=== PATIENT | female | born 1990 | race Caucasian/White ===

== ENCOUNTER 2016-09-29 19:32 | Emergency (ER) | payer BC ==
--- NOTE | 2016-09-29 19:42 | PDOC ---
History of Present Illness - General History Source: Patient Exam Limitations: No Limitations - History of Present Illness Initial Comments: 09/29/16 19:58 The patient is a 26 year old female, with no significant past medical history, who presents to the emergency department with right ankle pain and swelling s/p a mechanical trip and fall up the stairs approximately an hour prior to presentation to the ED. The patient states that she was running up the stairs, missed a step and twisted her right ankle. The patient immediately applied ice to the area and came to the ED for evaluation. The patient denies any other injury or trauma. PAST MEDICAL HISTORY: See HPI. PAST SURGICAL HISTORY: No significant history. FAMILY HISTORY: No pertinent history. SOCIAL HISTORY: Patient lives with family and is employed. MEDICATIONS: Reviewed. ALLERGIES: As per nursing notes. Adult ROS: General: No fevers or chills, no weakness, no weight loss. HEENT: No change in vision. No sore throat. No ear pain. CardioVascular: No chest pain or shortness of breath. Respiratory: No cough, or wheezing. Gastrointestinal: No nausea, vomiting, diarrhea or constipation, no rectal bleeding. Genitourinary: No dysuria, hematuria, or frequency. Musculoskeletal: +Right ankle pain and swelling. No muscle pain or swelling. Neurologic: No headache, vertigo, dizziness or loss of consciousness. Psychiatric: No depression. Skin: No rashes or easy bruising. Endocrine: No increased thirst or abnormal weight change. Allergic: No skin or latex allergy. All other systems reviewed and normal. Basic Physical Exam: GENERAL: The patient is awake, alert, and fully oriented, in no acute distress. HEAD: Normal with no signs of trauma. EYES: Pupils equal, round and reactive to light, extraocular movements intact, sclera anicteric, conjunctiva clear. EXTREMITIES: Right ankle, marked swelling over the lateral malleolus with tenderness to palpation. Mild tenderness over the 5th metatarsal but no swelling or ecchymoses over this area. Neurovascularly intact. NEUROLOGICAL: Normal speech. PSYCH: Normal mood, normal affect. SKIN: Warm, dry, normal turgor, no rashes or lesions noted. <Lori Kim - Last Filed: 09/29/16 20:04> - General History Source: Patient Exam Limitations: No Limitations - History of Present Illness Initial Comments: 09/29/16 20:27 A portion of this note was documented by scribe services under my direction. I have reviewed the details of the note, within reason, and agree with the documentation. The case summary and management plan written by me. X-ray right ankle and foot no acute pathology, no acute fracture or dislocation as reviewed by me Assessment and plan: This is a 26 her old female who twisted her right ankle while going up stairs when she missed a step. Patient complaining of pain and swelling over the lateral aspect of her right ankle. Patient had an x-ray that was negative for any acute pathology. Patient's ankle Sanjeev wrap and she was given Patient will follow-up with an orthopedist as needed patient given an orthopedic referral <Osmany Green I - Last Filed: 09/29/16 20:41> - General Chief Complaint: Pain, Acute Stated Complaint: TRIPPED UP STAIRS, RIGHT ANKLE INJURY Time Seen by Provider: 09/29/16 19:38 Past History <Lori Kim - Last Filed: 09/29/16 20:04> <Osmany Green I - Last Filed: 09/29/16 20:41> - Past Medical History Allergies/Adverse Reactions: Allergies Allergy/AdvReac Type Severity Reaction Status Date / Time No Known Allergies Allergy Verified 09/29/16 19:48 Home Medications: Ambulatory Orders NK [No Known Home Medication] 09/29/16 *Physical Exam - Vital Signs Last Vital Signs Temp Pulse Resp BP Pulse Ox 98.5 F 110 H 16 149/90 98 09/29/16 19:50 09/29/16 19:50 09/29/16 19:50 09/29/16 19:50 09/29/16 19:50 <Lori Kim - Last Filed: 09/29/16 20:04> ED Treatment Course - ADDITIONAL ORDERS Additional order review: Laboratory Results 09/29/16 19:45 Urine HCG, Qual Negative <Lori Kim - Last Filed: 09/29/16 20:04> *DC/Admit/Observation/Transfer - Attestations Scribe Attestion: 09/29/16 19:57 Documentation prepared by Lori Kim, acting as medical transcription supervisor for Osmany Green MD. <RosankyLori Hester - Last Filed: 09/29/16 20:04> - Discharge Dispostion Admit: No <Osmany Green I - Last Filed: 09/29/16 20:41> Diagnosis at time of Disposition: Moderate right ankle sprain Qualifiers: Encounter type: initial encounter Qualified Code(s): S93.401A - Sprain of unspecified ligament of right ankle, initial encounter - Discharge Dispostion Disposition: HOME Condition at time of disposition: Stable - Patient Instructions Printed Discharge Instructions: DI for Ankle Sprain Additional Instructions: Your x-ray was read by me and will be reread by the radiologist this evening. If the radiologist reading is anything different from mine we will contact you. Tylenol or Motrin as needed for pain. Use your crutches for walking however you can also bear weight as tolerated. If he needed an orthopedist to follow-up with follow-up with Dr. Rubin at [phone]. Return to the emergency department immediately with ANY new, persistent or worsening symptoms. Continue any medications as previously prescribed by your physician. You should follow up with your primary doctor as soon as possible regarding today's emergency department visit. . Please make sure your doctor reviews the results of your emergency evaluation. Thank you for coming to the Emergency Department today for your care. It was a pleasure to see you today. Please note that your evaluation is INCOMPLETE until you follow-up with your doctor.
[2016-09-29] MEDS ORDERED: KETOROLAC TROMETHAMINE 60 MG/2 ML VIAL IM ONE (19:45)
[2016-09-29 20:05] VITALS: BP 149/90; PULSE 110; TEMP 98.5; BMI 29.0
== END 2016-09-29 20:57 | disposition home or self-care (01) ==
LOC: FER 19:32
PROC: 3E0233Z Introduction of Anti-inflammatory into Muscle, Percutaneous Approach (ICD-10-PCS; principal; 2016-09-29)
DX: S93.401A Sprain of unspecified ligament of right ankle, initial encounter (principal); X58.XXXA Exposure to other specified factors, initial encounter; Y93.02 Activity, running; Y92.9 Unspecified place or not applicable
CPT/HCPCS: 73610-TC-RT; 73630-TC-RT; 84703; 99281-25

== ENCOUNTER 2018-09-14 09:00 | Emergency (ER) | payer BC ==
[2018-09-14 09:05] VITALS: TEMP 98.6; BMI 29.7
[2018-09-14] MEDS ORDERED: SODIUM CHLORIDE 1,000 ML IV STA (09:13)
[2018-09-14] MEDS ORDERED: DEXAMETHASONE SOD PHOSPHATE 20 MG/5 ML VIAL IVPB ONE (09:13)
[2018-09-14] MEDS ORDERED: PENICILLIN G BENZATHINE 1,200,000 UNIT/2 ML PFS IM ONE ×2 (09:17→09:37)
[2018-09-14] MEDS ORDERED: DEXAMETHASONE SOD PHOSPHATE 10 MG/1 ML VIAL ONE (09:25)
--- NOTE | 2018-09-14 09:26 | PDOC ---
History of Present Illness - General Chief Complaint: Cold Symptoms Stated Complaint: fever,sore throat,flu like symptoms Time Seen by Provider: 09/14/18 09:11 History Source: Patient Exam Limitations: No Limitations - History of Present Illness Initial Comments: 09/14/18 09:18 28 year old female with past medical history of celiac's disease presents with sore throat and fever x several days. + sick contact with her daughter. Has had hx of tonsillectomy and multiple strep infections when younger. No chest pain, SOB, cough. Went to urgent care recently, had negative strep and influenza, and pt was sent home. However, pt reports that this feels exactly like her prior strep infections. Past History - Past Medical History Allergies/Adverse Reactions: Allergies Allergy/AdvReac Type Severity Reaction Status Date / Time No Known Allergies Allergy Verified 09/14/18 09:02 Home Medications: Ambulatory Orders NK [No Known Home Medication] 09/29/16 COPD: No GI Disorders: (delia) - Suicide/Smoking/Psychosocial Hx Smoking History: Never smoked Have you smoked in the past 12 months: No Hx Alcohol Use: No Drug/Substance Use Hx: No Substance Use Type: None Review of Systems - Review of Systems Able to Perform ROS?: Yes Comments:: 09/14/18 09:26 GENERAL/CONSTITUTIONAL: [No chills. No weakness. No weight change.] + fevers HEAD, EYES, EARS, NOSE AND THROAT: [No change in vision. No ear pain or discharge. + sore throat CARDIOVASCULAR: [No chest pain or shortness of breath.] RESPIRATORY: [No cough, wheezing, or hemoptysis.] GASTROINTESTINAL: [No nausea, vomiting, diarrhea or constipation. No rectal bleeding.] GENITOURINARY: [No dysuria, frequency, or change in urination.] MUSCULOSKELETAL: [No joint or muscle swelling or pain. No neck or back pain.] SKIN AND BREASTS: [No rash or easy bruising.] NEUROLOGIC: [No headache, vertigo, loss of consciousness, or loss of sensation.] PSYCHIATRIC: [No depression or anxiety.] ENDOCRINE: [No increased thirst. No abnormal weight change.] HEMATOLOGIC/LYMPHATIC: [No anemia, easy bleeding, or history of blood clots.] ALLERGIC/IMMUNOLOGIC: [No hives or skin allergy. No latex allergy.] *Physical Exam - Vital Signs Last Vital Signs Temp Pulse Resp BP Pulse Ox 98.6 F 99 H 18 120/84 100 09/14/18 09:03 09/14/18 09:03 09/14/18 09:03 09/14/18 09:03 09/14/18 09:03 - Physical Exam Comments: 09/14/18 09:32 GENERAL: Awake, alert, and fully oriented, in no acute distress HEAD: No signs of trauma EYES:EOMI, sclera anicteric, conjunctiva clear ENT: Auricles normal inspection, hearing grossly normal, nares patent, oropharynx posterior with erythema NECK: Normal ROM, supple, + anterior cervical lymphadenopathy LUNGS: Breath sounds equal, clear to auscultation bilaterally. No wheezes, and no crackles HEART: Regular rate and rhythm, normal S1 and S2, no murmurs, rubs or gallops EXTREMITIES: Normal range of motion, no edema. No clubbing or cyanosis. No cords, erythema, or tenderness NEUROLOGICAL: Cranial nerves II through XII grossly intact. Normal speech, normal gait SKIN: Warm, Dry, normal turgor, no rashes or lesions noted. Moderate Sedation - Procedure Monitoring Vital Signs: Procedure Monitoring Vital Signs Temperature 98.6 F 09/14/18 09:03 Pulse Rate 99 H 09/14/18 09:03 Respiratory Rate 18 09/14/18 09:03 Blood Pressure 120/84 09/14/18 09:03 O2 Sat by Pulse Oximetry (%) 100 09/14/18 09:03 ED Treatment Course - LABORATORY CBC & Chemistry Diagram: 09/14/18 09:20 09/14/18 09:20 Medical Decision Making - Medical Decision Making 09/14/18 09:33 Vital Signs Temp Pulse Resp BP Pulse Ox 98.6 F 99 H 18 120/84 100 09/14/18 09:03 09/14/18 09:03 09/14/18 09:03 09/14/18 09:03 09/14/18 09:03 Obtain rapid strep and throat culture Given multiple hx of strep infections and similar presentation, will give empiric IM pencillin G Labs, IVF. once workup returns, and pt feels better, can be discharged as pharyngitis 09/14/18 10:23 CBC, BMP 09/14/18 09:20 09/14/18 09:20 CMP Sodium 133 mmol/L (136-145) L 09/14/18 09:20 Potassium 3.6 mmol/L (3.5-5.1) 09/14/18 09:20 Chloride 102 mmol/L (98-107) 09/14/18 09:20 Carbon Dioxide 25 mmol/L (21-32) 09/14/18 09:20 Anion Gap 6 MMOL/L (8-16) L 09/14/18 09:20 BUN 6 mg/dl (7-18) L 09/14/18 09:20 Creatinine 0.7 mg/dl (0.55-1.3) 09/14/18 09:20 Creat Clearance w eGFR > 60 (>60) 09/14/18 09:20 Random Glucose 149 mg/dl (74-106) H 09/14/18 09:20 Calcium 8.9 mg/dl (8.5-10) 09/14/18 09:20 Total Bilirubin 0.2 mg/dl (0.2-1) 09/14/18 09:20 AST 33 U/L (15-37) 09/14/18 09:20 ALT 38 U/L (13-61) 09/14/18 09:20 Alkaline Phosphatase 66 U/L (45-117) 09/14/18 09:20 Total Protein 7.6 g/dl (6.4-8.2) 09/14/18 09:20 Albumin 4.0 g/dl (3.4-5.0) 09/14/18 09:20 Glucose 149, though pt is drinking gatorade. Pt feels better, would like to go home. I discussed the physical exam findings, ancillary test results and final diagnoses with the patient. I answered all of the patient's questions. The patient was satisfied with the care received and felt comfortable with the discharge plan and treatment plan. The patient will call their primary care physician within 24 hours to arrange follow-up and will return to the Emergency Department with any new, persistant or worsening symptoms. *DC/Admit/Observation/Transfer Diagnosis at time of Disposition: Pharyngitis Qualifiers: Pharyngitis/tonsillitis etiology: unspecified etiology Qualified Code(s): J02.9 - Acute pharyngitis, unspecified - Discharge Dispostion Disposition: HOME Condition at time of disposition: Stable Decision to Admit order: No - Referrals - Patient Instructions Printed Discharge Instructions: DI for Pharyngitis/Tonsillopharyngitis -- Adult Additional Instructions: You may take 600 mg ibuprofen every 6 hours as needed for fever/pain. In the emergency department, you have received 1.2 million units of penicillin G and 10 mg IV dexamethasone (steroids). It may take several days before your symptoms improve. Drink plenty of fluids and rest. Follow up with your primary care physician. - Post Discharge Activity Forms/Work/School Notes: Back to Work
[2018-09-14 10:02] LABS: ALK PHOS 66 U/L (45-117); ANION GAP 6 MMOL/L (8-16); BILIRUBIN,TOTAL 0.2 mg/dl (0.2-1); BLOOD UREA NITROGEN 6 mg/dl (7-18); CALCIUM 8.9 mg/dl (8.5-10); CHLORIDE 102 mmol/L (98-107); CO2 25 mmol/L (21-32); CREATININE 0.7 mg/dl (0.55-1.3); GLUCOSE,RANDOM 149 mg/dl (74-106); POTASSIUM 3.6 mmol/L (3.5-5.1); SGOT/AST 33 U/L (15-37); SGPT/ALT 38 U/L (13-61); SODIUM 133 mmol/L (136-145); TOT PROT 7.6 g/dl (6.4-8.2)
[2018-09-14 10:14] LABS: BASO % 0.1 % (0-2.0); EOS % 0.2 % (0-4.5); HEMATOCRIT 41.3 % (32.4-45.2); HEMOGLOBIN 13.3 GM/dl (10.7-15.3); LYMPH % 8.5 % (8-40); MCH 28.4 pg (25.7-33.7); MCHC 32.3 g/dl (32.0-36.0); MEAN CELL VOLUME 87.8 fl (80-96); MEAN PLT VOLUME 9.4 fl (7.5-11.1); MONO % 6.3 % (3.8-10.2); NEUT % 84.9 % (42.8-82.8); PLATELET COUNT 307 K/MM3 (134-434); RDW 13.8 % (11.6-15.6); WHITE BLOOD COUNT 9.3 K/mm3 (4.0-10.8)
[2018-09-14] MEDS ORDERED: IBUPROFEN 600 MG TABLET (FP) PO ONE ×2 (10:22→10:23)
[2018-09-14 10:38] VITALS: BP 127/74; PULSE 74
== END 2018-09-14 10:40 | disposition home or self-care (01) ==
LOC: FER 09:00
PROC: 3E033GC Introduction of Other Therapeutic Substance into Peripheral Vein, Percutaneous Approach (ICD-10-PCS; principal; 2018-09-14)
PROC: 3E02329 Introduction of Other Anti-infective into Muscle, Percutaneous Approach (ICD-10-PCS; 2018-09-14)
PROC: 3E0337Z Introduction of Electrolytic and Water Balance Substance into Peripheral Vein, Percutaneous Approach (ICD-10-PCS; 2018-09-14)
DX: J02.9 Acute pharyngitis, unspecified (principal)
CPT/HCPCS: 36415; 80053; 85025; 87070; 87880; 99283-25; J7030

== ENCOUNTER 2020-06-07 16:15 | Emergency (ER) | payer BC | END 2020-06-07 18:19 | disposition home or self-care (01) | LOC: JVIRT 16:15 | DX: Z03.818 Encounter for observation for suspected exposure to other biological agents ruled out (principal); R19.7 Diarrhea, unspecified | CPT/HCPCS: C9803; G2012-GT; U0003 ==